=== PATIENT | female | born 1980 | race Caucasian/White ===

== ENCOUNTER 2017-09-05 12:04 | Emergency (ER) | END 2017-09-05 14:29 | disposition home or self-care (01) ==

== ENCOUNTER 2017-09-29 22:42 | Emergency (ER) | END 2017-09-30 04:15 | disposition home or self-care (01) ==

== ENCOUNTER 2018-03-19 04:51 | Emergency (ER) | END 2018-03-19 08:24 | disposition home or self-care (01) ==